=== PATIENT | male | born 1990 | race Caucasian/White ===

== ENCOUNTER 2017-04-11 09:21 | Emergency (ER) | payer MEDICAID ==
[~2017-04-11 09:21] MED LIST: CYCL1TAB29 PO; PRED20 PO; PRED5PAK PO
[2017-04-11 09:27] VITALS: BP 130/76; PULSE 78; RESP 18; TEMP 98.4; O2SAT 98
== END 2017-04-11 10:45 | disposition left against medical advice (07) ==
LOC: NED 09:21
DX: T14.8 Other injury of unspecified body region (principal); X58.XXXA Exposure to other specified factors, initial encounter; Z53.21 Procedure and treatment not carried out due to patient leaving prior to being seen by health care provider
CPT/HCPCS: 99281